=== PATIENT | male | born 2000 | race Caucasian/White ===

== ENCOUNTER 2022-11-06 21:21 | Emergency (ER) | payer OTHER ==
--- NOTE | 2022-11-06 21:47 | ED Physician Documentation ---
History of Present Illness - Stated complaint Stated Complaint: INGESTED QUESTIONABLE SUBSTANCE - Chief complaint Chief Complaint: General - History obtained from History obtained from: Patient - Additonal information Additional information: HPI from patient. Patient was working tonight at [facility]. Patient was about to apply a sealant which required mixing in a "promoter" into the sealant material. Patient had difficulty getting the cap off of the promoter, and thus uses teeth to unscrew the cap from the glass file that contained a promoter. While he did not sense any liquid getting into his mouth, he did immediately have an odd taste in his mouth upon unscrewing the cap. He then swallowed the saliva that was in his mouth and noticed this strange taste in the saliva, as well. He mentioned this to a coworker, who pointed out that there were potentially some hazardous materials in this promoter and he was thus advised to come to the emergency department for evaluation. Patient is chiefly concerned about potential for cancer with his exposure. On review of systems only does he mention a very mild burning sensation on his lips but nowhere else in the mouth. He denies chest pain, shortness of breath, abdominal pain, nausea, vomiting. The substances in the promoter included titanium tetrabutoxide, 6-[id number]-siyin alpha ahpla-trifluorotoluene , and acetone. Review of Systems Eyes: denies: Discharge, Irritation Throat: denies: Sore throat Respiratory: denies: Dyspnea, Cough GI: denies: Abdominal Pain, Nausea, Vomiting Skin: denies: Rash PD PAST MEDICAL HISTORY - Past Medical History Past Medical History: No - Present Medications Home Medications: Ambulatory Orders Medication Instructions Recorded Confirmed No Known Home Medications 11/06/22 11/06/22 - Allergies Allergies/Adverse Reactions: Allergies Allergy/AdvReac Type Severity Reaction Status Date / Time No Known Drug Allergies Allergy Verified 11/06/22 21:29 PD ED PE NORMAL - Vitals Vital signs reviewed: Yes - General General: Alert and oriented X 3, No acute distress, Well developed/nourished - HEENT HEENT: Moist mucous membranes, Pharynx benign - Respiratory Respiratory: No respiratory distress, Clear bilaterally - Abdomen Abdomen: Soft, Non tender Results - Vitals Vitals: Vital Signs - 24 hr 11/06/22 11/06/22 21:29 22:35 Temperature 37.1 C 37.3 C Heart Rate 79 77 Respiratory 16 16 Rate Blood Pressure 135/71 H 133/83 H O2 Saturation 97 100 Oxygen O2 Source Room air PD Medical Decision Making - ED course Complexity details: considered differential ED course: ED RN contacted poison control center and their recommendation is observation in the emergency department for 1 hour. They also recommend that patient rinse his mouth as well as drink some water and these interventions were undertaken. Patient is in no apparent/acute distress on initial evaluation on reevaluation prior to discharge, and his only physical complaint is a minimal burning sensation of the lips which he only mentions during review of systems rather than HPI. Departure - Departure Disposition: 01 Home, Self Care Clinical Impression: Chemical exposure Condition: Good Comments: Based on lack of symptoms (only mild burning of lips) and the trace exposure per your description of the event, no further observation nor specific treatment is warranted. Please follow proper protocols when handing this and similar hazardous chemicals. Discharge Date/Time: 11/06/22 22:41
[2022-11-06 22:35] VITALS: BP 133/83
== END 2022-11-06 22:41 | disposition home or self-care (01) ==
LOC: ED 21:21
DX: Z77.098 Contact with and (suspected) exposure to other hazardous, chiefly nonmedicinal, chemicals (principal)
CPT/HCPCS: 99281; 99282